=== PATIENT | female | born 1950 | race Caucasian/White ===

== ENCOUNTER → 2016-10-31 13:52 | Day surgery (SDC) | payer OTHER ==
[~2016-10-31] VITALS: Ht 162.6 cm; Wt 74.4 kg
--- NOTE | ~2016-10-31 | OP ---
PATIENT NAME: MELISA MARLOW MEDICAL RECORD: [id number] :54 LOCATION:[facility] ADMISSION DATE: SURGEON: ELIAZAR HSU DO OPERATION DATE: 10/31/16 PROCEDURE: Colonoscopy with polypectomy. INDICATIONS FOR PROCEDURE: History of colon polyps, constipation, hematochezia, chronic anemia. SCOPE: Olympus video pediatric colonoscope. MEDICATIONS: Propofol 250 milligrams IV per anesthesia. WITHDRAWAL TIME: Greater than 15 minutes. ESTIMATED BLOOD LOSS: Minimal. COMPLICATIONS: None. FINDINGS: Informed consent was given. The patient was made comfortable with the above medication. After reaching an adequate level of sedation by slow IV push, the patient was placed on her left side. A digital rectal examination was performed and was normal. The endoscope was then advanced under direct visualization through the rectum to the cecum with visualization of the appendiceal orifice and ileocecal valve. The scope was slowly withdrawn, and the mucosa was carefully examined. There was evidence of mild diverticulosis of the descending and sigmoid colon. There were four polyps visualized in the rectum which were benign appearing and sessile. They measured approximately 4 to 6 millimeters in diameter. They were all removed with a hot snare. Each was removed in one piece and completely retrieved. Retroflexion was performed in the rectum with a normal view. The scope was then slowly withdrawn from the patient. The patient tolerated the procedure well, and there were no complications. IMPRESSIONS: 1. Four rectal polyps as described above, all removed with a hot snare. 2. Mild diverticulosis of the descending and sigmoid colon. PLAN/RECOMMENDATIONS: 1. Discharge home when recovery parameters are met. 2. Continue current medications. 3. High fiber diet. 4. Follow up biopsy specimen results which will dictate recall recommendations. At this time I anticipate a recall colonoscopy in 3-5 years. ELIAZAR HSU DO CC: [id number] DICTATION DATE: 10/31/16 1500 DIRECTOR OF CONSULTING SERVICES: DM 11/01/16 0848 [facility] 10/31/16 [facility] [address] [place] [address]
[~2016-10-31 13:52] MED LIST: CARAFATE1 G PO; CARDIZEM120 MG PO; HCTZ25 MG PO; KENALOG IN ORABA5 GM TOPICAL; LANOXIN250 MCG PO; PAROXETINE HCL10 MG PO; PROBIOTIC1 EAC1 PO; PROTONIX20 MG PO; XARELTO10 MG PO
[2016-10-31 14:46] VITALS: BP 123/65; Ht 162.6 cm; Wt 74.4 kg
[2016-10-31 15:20] LABS: HEMATOCRIT 41.6 % (36.0-48.0); HEMOGLOBIN 14.1 g/dL (12-16); MCH 31.8 pg (26.0-34.0); MCHC 33.9 g/dL (31.0-37.0); MCV 93.7 fL (80.0-100.0); MEAN PLATELET VOLUME 10.1 fL (7.4-10.4); RBC 4.44 10x6/uL (4.00-5.40); RDW 13.8 % (11.5-14.5); WBC 9.3 10x3/uL (4.8-10.8)
--- NOTE | 2016-10-31 17:47 | NUR ---
1739 PT ESCORTED OUT BY MYSELF AND PICKED UP BY HER GRANDDAUGHTER
== END | disposition home or self-care (01) ==
LOC: D.OPS 13:52
PROVIDERS: Internal Medicine Gastroenterology
DX: K62.1 Rectal polyp (principal); K57.30 Diverticulosis of large intestine without perforation or abscess without bleeding; D64.9 Anemia, unspecified; R10.13 Epigastric pain; K92.1 Melena; F17.200 Nicotine dependence, unspecified, uncomplicated; I25.10 Atherosclerotic heart disease of native coronary artery without angina pectoris; J44.9 Chronic obstructive pulmonary disease, unspecified; K21.9 Gastro-esophageal reflux disease without esophagitis; Z01.812 Encounter for preprocedural laboratory examination